=== PATIENT | male | born 1970 | race Caucasian/White ===

== ENCOUNTER 2019-01-17 08:20 | Day surgery (SDC) | payer OTHER ==
[2019-01-17] MEDS ORDERED: TRAMADOL HCL50 MG PO (12:59)
[2019-01-17] MEDS ORDERED: MIRALAX17 GM PO (12:59)
[2019-01-17] MEDS ORDERED: TYLENOL EXTRA500 MG PO (12:59)
[2019-01-17] MEDS ORDERED: ZOFRAN4 MG PO (12:59)
[2019-01-17] MEDS ORDERED: NEURONTIN300 MG PO (12:59)
== END 2019-01-17 16:00 | disposition home or self-care (01) ==
LOC: CIR.AMB 08:20
DX: K42.0 Umbilical hernia with obstruction, without gangrene (principal)